=== PATIENT | male | born 1945 | race Caucasian/White ===

== ENCOUNTER 2018-03-26 09:02 | Outpatient (RCR) | payer BC | END 2018-06-24 | disposition home or self-care (01) | LOC: CARDREHAB | DX: Z48.812 Encounter for surgical aftercare following surgery on the circulatory system (principal); Z95.1 Presence of aortocoronary bypass graft; I25.2 Old myocardial infarction ==

== ENCOUNTER 2018-06-25 10:00 | Outpatient (RCR) | payer BC | END 2018-06-30 11:53 | disposition home or self-care (01) | LOC: CARDREHAB 10:00 | DX: Z48.812 Encounter for surgical aftercare following surgery on the circulatory system (principal); Z95.1 Presence of aortocoronary bypass graft; I25.2 Old myocardial infarction ==